=== PATIENT | male | born 1935 | race Hispanic/Latino ===

== ENCOUNTER 2017-08-13 16:49 | Inpatient (IN) | payer MEDICARE ==
[~2017-08-13] VITALS: Ht 177.8 cm; Wt 81.6 kg
[~2017-08-13 16:49] MED LIST: LISI40TA4 PO; METO-409 PO; SIMV40TA59 PO
[2017-08-13] MEDS ORDERED: ONDANSETRON HCL 4 MG/2 ML VIAL ONE (17:10)
[2017-08-13] MEDS ORDERED: LACTATED RINGERS 1000ML 1,000 ML IV ONE (17:11)
[2017-08-13] MEDS ORDERED: ZOSYN 3.375GM+NS 50ML 50 ML IV ONE (17:11)
[2017-08-13] MEDS ORDERED: MORPHINE SULFATE 2 MG/ML 1ML SYG ONE ×2 (17:11→17:24)
[2017-08-13 17:13] LABS: BASOPHILS % (AUTO) 0.4 % (0.0-5.0); EOSINOPHILS % (AUTO) 3.2 % (0.0-8.0); LYMPHOCYTES % (AUTO) 15.5 % (21.0-51.0); MEAN CORPUSCULAR HEMOGLOBIN 33.3 pg (27.0-33.0); MEAN CORPUSCULAR HGB CONC 35.3 g/dL (32.0-36.0); MEAN CORPUSCULAR VOLUME 94.4 fL (79-99); MONOCYTES % (AUTO) 9.9 % (3.0-13.0); NUCLEATED RED BLOOD CELLS 0.1 % (0.0-0.19); PLATELET COUNT (AUTO) 213 K/uL (130-400); RED BLOOD CELL COUNT(AUTO) 3.61 MIL/uL (4.50-6.20); RED CELL DISTRIBUTION WIDTH 12.1 % (11.0-15.5); WHITE BLOOD COUNT (AUTO) 9.4 K/uL (4.8-10.8)
[2017-08-13 17:21] LABS: CREATININE 1.3 mg/dL (0.5-1.5); POTASSIUM 3.9 mmol/L (3.5-5.1)
[2017-08-13 18:07] VITALS: BP 147/80
[2017-08-13] MEDS ORDERED: MORPHINE SULFATE 4 MG/1ML SYG IVP PRN (18:45)
[2017-08-13] MEDS: MORPHINE SULFATE 2 MG/ML 1ML SYG IVP PRN (19:32)
[2017-08-13 20:09] VITALS: BP 135/68
[2017-08-13 23:20] VITALS: BP 142/66
[2017-08-14] MEDS: ZOSYN 3.375GM+NS 50ML 50 ML IV SCH ×3 (01:54→17:15)
[2017-08-14] MEDS: MORPHINE SULFATE 2 MG/ML 1ML SYG IVP PRN ×5 (02:04→22:20)
[2017-08-14 03:35] VITALS: BP 118/68
[2017-08-14 04:41] LABS: HEMATOCRIT 29.5 % (42-54); MEAN CORPUSCULAR HGB CONC 35.1 g/dL (32.0-36.0); PLATELET COUNT (AUTO) 176 K/uL (130-400); RED BLOOD CELL COUNT(AUTO) 3.14 MIL/uL (4.50-6.20); RED CELL DISTRIBUTION WIDTH 12.4 % (11.0-15.5); WHITE BLOOD COUNT (AUTO) 8.3 K/uL (4.8-10.8)
[2017-08-14 04:49] LABS: CREATININE 1.2 mg/dL (0.5-1.5); POTASSIUM 3.9 mmol/L (3.5-5.1)
[2017-08-14 08:00] VITALS: BP 137/72
[2017-08-14] MEDS: METOPROLOL TARTRATE 50 MG TAB PO SCH ×2 (09:19→22:20)
[2017-08-14] MEDS: LISINOPRIL 40 MG TABLET PO SCH (09:23)
[2017-08-14] MEDS: ONDANSETRON HCL 4 MG/2 ML VIAL IVP PRN (11:55)
[2017-08-14 12:00] VITALS: BP 119/66
[2017-08-14 16:00] VITALS: BP 120/65
[2017-08-14 19:50] VITALS: BP 155/88
[2017-08-14] MEDS: ATORVASTATIN CALCIUM 20 MG TABLET PO SCH (22:20)
[2017-08-14 23:15] VITALS: BP 138/78
[2017-08-15] MEDS: ZOSYN 3.375GM+NS 50ML 50 ML IV SCH ×3 (02:02→16:54)
[2017-08-15] MEDS: MORPHINE SULFATE 2 MG/ML 1ML SYG IVP PRN ×3 (02:04→16:54)
[2017-08-15] MEDS: LACTATED RINGERS 1000ML 1,000 ML IV SCH (02:04)
[2017-08-15 03:42] VITALS: BP 144/83
[2017-08-15 08:00] VITALS: BP 136/81
[2017-08-15] MEDS: METOPROLOL TARTRATE 50 MG TAB PO SCH ×2 (09:36→22:36)
[2017-08-15] MEDS: LISINOPRIL 40 MG TABLET PO SCH (09:36)
[2017-08-15 12:00] VITALS: BP 148/77
[2017-08-15 16:00] VITALS: BP_SYST 121; BP_SYST 127; BP_DIAS 68; BP_DIAS 76
[2017-08-15 19:00] VITALS: BP 144/77
[2017-08-15] MEDS: ATORVASTATIN CALCIUM 20 MG TABLET PO SCH (22:36)
[2017-08-15 23:00] VITALS: BP 124/71
[2017-08-16] MEDS: ZOSYN 3.375GM+NS 50ML 50 ML IV SCH ×3 (00:48→16:29)
[2017-08-16] MEDS: MORPHINE SULFATE 2 MG/ML 1ML SYG IVP PRN ×2 (00:49→11:13)
[2017-08-16 03:00] VITALS: BP 133/73
[2017-08-16 05:38] LABS: BASOPHILS % (AUTO) 0.3 % (0.0-5.0); EOSINOPHILS % (AUTO) 2.7 % (0.0-8.0); HEMATOCRIT 30.1 % (42-54); LYMPHOCYTES % (AUTO) 14.8 % (21.0-51.0); MEAN CORPUSCULAR HEMOGLOBIN 32.9 pg (27.0-33.0); MEAN CORPUSCULAR VOLUME 94.1 fL (79-99); MONOCYTES % (AUTO) 10.1 % (3.0-13.0); NEUTROPHILS % (AUTO) 72.1 % (40.0-77.0); PLATELET COUNT (AUTO) 204 K/uL (130-400); RED BLOOD CELL COUNT(AUTO) 3.21 MIL/uL (4.50-6.20); RED CELL DISTRIBUTION WIDTH 12.3 % (11.0-15.5); WHITE BLOOD COUNT (AUTO) 10.1 K/uL (4.8-10.8)
[2017-08-16 08:00] VITALS: BP 135/77
[2017-08-16] MEDS: METOPROLOL TARTRATE 50 MG TAB PO SCH ×2 (08:40→20:39)
[2017-08-16] MEDS: LISINOPRIL 40 MG TABLET PO SCH (08:40)
[2017-08-16] MEDS: LACTATED RINGERS 1000ML 1,000 ML IV SCH (08:48)
[2017-08-16 12:00] VITALS: BP 147/84
[2017-08-16] MEDS ORDERED: VANCOMYCIN PROTOCOL PER PHARMACY IV SCH (12:00)
[2017-08-16] MEDS ORDERED: VANCOMYCIN 1GM+NS 250ML 250 ML IV SCH (12:00)
[2017-08-16] MEDS ORDERED: MAGNESIUM CITRATE 296 ML SOLUTION PO SCH (12:15)
[2017-08-16] MEDS ORDERED: LACTULOSE 20 GM/30 ML UDCUP PO SCH ×2 (12:15→16:00)
[2017-08-16] MEDS ORDERED: COMPOUND IV REFRIGERATED 1 EACH IVSOLN MISC PRN (12:15)
[2017-08-16] MEDS: VANCOMYCIN 1.25 GM in SODIUM CHLORIDE 0.9% 250 ML IV SCH (13:00)
[2017-08-16 13:11] LABS: INR 1.05 (0.85-1.15); PARTIAL THROMBOPLASTIN TIME 28.5 SEC (26.3-35.5)
[2017-08-16] MEDS ORDERED: VANCOMYCIN 1GM+NS 250ML 250 ML IV ONE (13:18)
[2017-08-16] MEDS: MAGNESIUM HYDROXIDE 30 ML/UDCUP PO SCH (13:52)
[2017-08-16 16:00] VITALS: BP 132/85
[2017-08-16 19:00] VITALS: BP 167/90
[2017-08-16] MEDS: ATORVASTATIN CALCIUM 20 MG TABLET PO SCH (20:39)
[2017-08-16 23:00] VITALS: BP 145/87
[2017-08-16] MEDS ORDERED: MORPHINE SULFATE 4 MG/1ML SYG ONE (23:22)
[2017-08-17] MEDS: ZOSYN 3.375GM+NS 50ML 50 ML IV SCH ×3 (01:11→17:26)
[2017-08-17] MEDS: VANCOMYCIN 1.25 GM in SODIUM CHLORIDE 0.9% 250 ML IV SCH ×2 (01:12→17:26)
[2017-08-17 03:00] VITALS: BP 129/72
[2017-08-17 05:46] LABS: HEMATOCRIT 29.4 % (42-54); MEAN CORPUSCULAR HEMOGLOBIN 33.6 pg (27.0-33.0); MEAN CORPUSCULAR HGB CONC 36.1 g/dL (32.0-36.0); PLATELET COUNT (AUTO) 201 K/uL (130-400); RED BLOOD CELL COUNT(AUTO) 3.16 MIL/uL (4.50-6.20); RED CELL DISTRIBUTION WIDTH 12.2 % (11.0-15.5); WHITE BLOOD COUNT (AUTO) 8.3 K/uL (4.8-10.8)
[2017-08-17 06:11] LABS: ALBUMIN 2.4 g/dL (3.5-5.0); BILIRUBIN,TOTAL 0.7 mg/dL (0.2-1.0); CREATININE 1.1 mg/dL (0.5-1.5); POTASSIUM 4.2 mmol/L (3.5-5.1); TOTAL PROTEIN, SERUM 5.8 g/dL (6.0-8.3)
[2017-08-17 06:41] LABS: EOSINOPHILS % (MANUAL) 3 % (1-6); LYMPHOCYTES % (MANUAL) 10 % (22-44); MAN.DIFF COMMENT-IMPRESSION MANUAL DIFFERENTIAL; MONOCYTES % (MANUAL) 7 % (2-9); PLATELET MORPHOLOGY COMMENT ADEQUATE; REACTIVE LYMPHOCYTES 1 % (0-0); SEGMENTED NEUTROPHILS % 79 % (40-70)
[2017-08-17 07:00] VITALS: BP 142/78
[2017-08-17] MEDS: METOPROLOL TARTRATE 50 MG TAB PO SCH ×2 (09:05→19:56)
[2017-08-17] MEDS: LISINOPRIL 40 MG TABLET PO SCH (09:05)
[2017-08-17] MEDS: ENOXAPARIN SODIUM 30 MG/0.3 ML SQ SCH (09:06)
[2017-08-17] MEDS: MORPHINE SULFATE 2 MG/ML 1ML SYG IVP PRN (10:32)
[2017-08-17 11:00] VITALS: BP 131/79
[2017-08-17 16:00] VITALS: BP 147/80
[2017-08-17 19:22] VITALS: BP 138/88
[2017-08-17] MEDS: MAGNESIUM HYDROXIDE 30 ML/UDCUP PO SCH (19:54)
[2017-08-17] MEDS: ATORVASTATIN CALCIUM 20 MG TABLET PO SCH (19:56)
[2017-08-17 23:30] VITALS: BP 139/72
[2017-08-18] MEDS: ZOSYN 3.375GM+NS 50ML 50 ML IV SCH ×3 (00:46→17:27)
[2017-08-18] MEDS: VANCOMYCIN 1.25 GM in SODIUM CHLORIDE 0.9% 250 ML IV SCH ×2 (00:46→13:32)
[2017-08-18] MEDS ORDERED: MORPHINE SULFATE 4 MG/1ML SYG ONE ×2 (01:28→23:00)
[2017-08-18 03:38] VITALS: BP 141/75
[2017-08-18 06:05] LABS: HEMATOCRIT 29.4 % (42-54); MEAN CORPUSCULAR HEMOGLOBIN 33.4 pg (27.0-33.0); MEAN CORPUSCULAR HGB CONC 35.9 g/dL (32.0-36.0); MEAN CORPUSCULAR VOLUME 92.9 fL (79-99); PLATELET COUNT (AUTO) 212 K/uL (130-400); RED BLOOD CELL COUNT(AUTO) 3.16 MIL/uL (4.50-6.20); RED CELL DISTRIBUTION WIDTH 12.1 % (11.0-15.5); WHITE BLOOD COUNT (AUTO) 8.2 K/uL (4.8-10.8)
[2017-08-18 06:24] LABS: ALBUMIN 2.5 g/dL (3.5-5.0); BILIRUBIN,TOTAL 0.7 mg/dL (0.2-1.0); POTASSIUM 4.1 mmol/L (3.5-5.1)
[2017-08-18 07:00] VITALS: BP 147/84
[2017-08-18 11:00] VITALS: BP 141/75
[2017-08-18] MEDS: METOPROLOL TARTRATE 50 MG TAB PO SCH ×2 (11:14→22:55)
[2017-08-18] MEDS: LISINOPRIL 40 MG TABLET PO SCH (11:14)
[2017-08-18] MEDS: ENOXAPARIN SODIUM 30 MG/0.3 ML SQ SCH (11:33)
[2017-08-18] MEDS: MAGNESIUM HYDROXIDE 30 ML/UDCUP PO SCH (12:53)
[2017-08-18 16:00] VITALS: BP 146/83
[2017-08-18 20:00] VITALS: BP 150/76
[2017-08-18] MEDS: ATORVASTATIN CALCIUM 20 MG TABLET PO SCH (22:55)
[2017-08-18] MEDS: HONEY 1 APPL/ML TUBE TP SCH (22:55)
[2017-08-19] VITALS: BP 119/68
[2017-08-19] MEDS: ZOSYN 3.375GM+NS 50ML 50 ML IV SCH ×3 (02:00→17:24)
[2017-08-19] MEDS: VANCOMYCIN 1.25 GM in SODIUM CHLORIDE 0.9% 250 ML IV SCH ×2 (02:00→13:53)
[2017-08-19 04:00] VITALS: BP 122/66
[2017-08-19 08:30] VITALS: BP 140/86
[2017-08-19] MEDS: METOPROLOL TARTRATE 50 MG TAB PO SCH ×2 (08:48→21:08)
[2017-08-19] MEDS: LISINOPRIL 40 MG TABLET PO SCH (08:48)
[2017-08-19] MEDS: HONEY 1 APPL/ML TUBE TP SCH (08:49)
[2017-08-19] MEDS: ENOXAPARIN SODIUM 30 MG/0.3 ML SQ SCH (08:49)
[2017-08-19 11:23] VITALS: BP 129/75
[2017-08-19] MEDS: MAGNESIUM HYDROXIDE 30 ML/UDCUP PO SCH (11:56)
[2017-08-19] MEDS: MORPHINE SULFATE 2 MG/ML 1ML SYG IVP PRN (15:40)
[2017-08-19 16:02] VITALS: BP 135/76
[2017-08-19 19:35] VITALS: BP 132/76
[2017-08-19] MEDS: ATORVASTATIN CALCIUM 20 MG TABLET PO SCH (21:08)
[2017-08-20] VITALS (8 sets, daily range): BP systolic 125–151; BP diastolic 67–93
[2017-08-20] MEDS: VANCOMYCIN 1.25 GM in SODIUM CHLORIDE 0.9% 250 ML IV SCH (01:00)
[2017-08-20] MEDS: ZOSYN 3.375GM+NS 50ML 50 ML IV SCH ×2 (01:10→09:38)
[2017-08-20] MEDS: METOPROLOL TARTRATE 50 MG TAB PO SCH ×2 (09:37→22:11)
[2017-08-20] MEDS: LISINOPRIL 40 MG TABLET PO SCH (09:37)
[2017-08-20] MEDS: ENOXAPARIN SODIUM 30 MG/0.3 ML SQ SCH (09:40)
[2017-08-20] MEDS: HONEY 1 APPL/ML TUBE TP SCH (09:41)
[2017-08-20] MEDS: MORPHINE SULFATE 2 MG/ML 1ML SYG IVP PRN (09:51)
[2017-08-20] MEDS: ONDANSETRON HCL 4 MG/2 ML VIAL IVP PRN (09:51)
[2017-08-20] MEDS: MAGNESIUM HYDROXIDE 30 ML/UDCUP PO SCH (12:15)
[2017-08-20] MEDS ORDERED: ACETAMINOPHEN-CODEINE 300/30MG TAB ONE (22:09)
[2017-08-20] MEDS: ATORVASTATIN CALCIUM 20 MG TABLET PO SCH (22:11)
[2017-08-20] MEDS: VANCOMYCIN 1GM+NS 250ML 250 ML IV SCH (22:12)
[2017-08-20] MEDS: ACETAMINOPHEN-CODEINE 300/30MG TAB PO PRN (22:12)
[2017-08-21] MEDS: ZOSYN 3.375GM+NS 50ML 50 ML IV SCH ×2 (02:50→09:25)
[2017-08-21 03:00] VITALS: BP 124/75
[2017-08-21 07:36] VITALS: BP 135/78
[2017-08-21] MEDS: VANCOMYCIN 1GM+NS 250ML 250 ML IV SCH (09:24)
[2017-08-21] MEDS: ACETAMINOPHEN-CODEINE 300/30MG TAB PO PRN (09:25)
[2017-08-21] MEDS: LISINOPRIL 40 MG TABLET PO SCH (09:25)
[2017-08-21] MEDS: METOPROLOL TARTRATE 50 MG TAB PO SCH (09:25)
[2017-08-21] MEDS: ENOXAPARIN SODIUM 30 MG/0.3 ML SQ SCH (09:26)
[2017-08-21] MEDS: HONEY 1 APPL/ML TUBE TP SCH (09:29)
[2017-08-21 11:23] VITALS: BP 147/84
[2017-08-21 16:15] VITALS: BP 125/68
== END 2017-08-21 18:50 | DRG 862 ==
LOC: EDH 16:49 → EDHIP 16:50 → 3CH 17:49
PROVIDERS: ADMIT Surgery; ATTEND Surgery
PROC: 02HV33Z Insertion of Infusion Device into Superior Vena Cava, Percutaneous Approach (ICD-10-PCS; principal; 2017-08-17)
DX: T81.4XXA Infection following a procedure, initial encounter (principal); E43 Unspecified severe protein-calorie malnutrition; L03.116 Cellulitis of left lower limb; J44.9 Chronic obstructive pulmonary disease, unspecified; I10 Essential (primary) hypertension; I25.10 Atherosclerotic heart disease of native coronary artery without angina pectoris; D64.9 Anemia, unspecified; E78.5 Hyperlipidemia, unspecified; Y83.8 Other surgical procedures as the cause of abnormal reaction of the patient, or of later complication, without mention of misadventure at the time of the procedure; Z68.25 Body mass index [BMI] 25.0-25.9, adult; Y92.89 Other specified places as the place of occurrence of the external cause
CPT/HCPCS: 36415; 80048; 80053; 80202; 85025; 85027; 85610; 85730; 93005; C1894; J1650; J2270; J2405; J2543; J3370; J7030; J7120

== ENCOUNTER → 2022-11-04 | Outpatient (CLI) | payer OTHER ==
[~2022-11-04] MED LIST changes: -LISI40TA4 PO; +LISI40TA9 PO
== END | disposition home or self-care (01) ==
LOC: RAH 09:54
PROVIDERS: ATTEND Internal Medicine
DX: R60.9 Edema, unspecified (principal)
CPT/HCPCS: 93971